=== PATIENT | female | born 1995 | race Caucasian/White ===

== ENCOUNTER 2021-07-02 00:17 | Emergency (ER) | payer BC, SELFPAY ==
[2021-07-02 00:23] VITALS: BP 147/95; PULSE 147; RESP 19; TEMP 36.7; O2SAT 98
[2021-07-02 01:32] VITALS: BP 135/88; PULSE 112; RESP 20; O2SAT 100
[2021-07-02] MEDS: SODIUM CHLORIDE 0.9% IV 1,000 ML 999 ML IV CONT (02:01)
--- NOTE | 2021-07-02 02:06 | ED.GENADULT ---
HPI - General Adult General Chief complaint: Vaginal Bleeding Stated complaint: 15 wks , bleeding COVID+ Time Seen by Provider: 07/02/21 01:33 History of Present Illness HPI narrative: Patient is a 25-year-old female who presents the emergency department with chief complaint of vaginal bleeding patient reports that she is about between 14 and 16 weeks and is followed by OB at [place] patient reports that this evening she started having cramping and started having bleeding the patient states she fell gush of blood and has had a fair amount of dark blood. Patient reports she was given RhoGAM about a week ago Related Data Home Medications Medication Instructions Recorded Confirmed aspirin 07/02/21 potassium chloride meq 07/02/21 Allergies Allergy/AdvReac Type Severity Reaction Status Date / Time amoxicillin Allergy Mild Rash Verified 07/02/21 01:33 Latex, Natural Rubber Allergy Unknown Rash Verified 07/02/21 01:33 Review of Systems Review of Systems: A 10 system review of systems was completed on the patient and is negative except for what is stated in the HPI. Nursing and ancillary documentation was reviewed. [facility] Family History Family History Father Family history of malignant neoplasm of urinary bladder Other Family history of lung cancer Hypertension Social History Social History Smoking status: Never smoker Alcohol intake: never Exam Narrative: GENERAL: Well-appearing, well-nourished, and in no acute distress. HEAD: Normocephalic, atraumatic. EYES: PERRLA and EOMI. ENT: Nares clear, no rhinorrhea or epistaxis. Mucous membranes moist. NECK: Supple. CHEST: Clear to auscultation. No respiratory distress. HEART: Regular rate and rhythm. No murmur heard. Normal peripheral pulses. ABDOMEN: Soft, nontender, nondistended, normal active bowel sounds. : There is dark blood present in the vaginal vault EXTREMITIES: Normal range of motion. No edema. SKIN: Warm, dry, no rash. NEURO: No focal deficits. Alert and oriented x3. PSYCH: Normal mood and affect. Course Vital Signs Vital signs: Vital Signs Temperature 36.7 C 07/02/21 00:23 Pulse Rate 147 H 07/02/21 00:23 Respiratory Rate 19 07/02/21 00:23 Blood Pressure 147/95 H 07/02/21 00:23 Pulse Oximetry 98 07/02/21 00:23 Temperature 36.7 C 07/02/21 00:23 Pulse Rate 112 H 07/02/21 01:32 Respiratory Rate 20 07/02/21 01:32 Blood Pressure 135/88 07/02/21 01:32 Pulse Oximetry 100 07/02/21 01:32 Medical Decision Making Vital Signs Vital Signs: Vital Signs Temperature 36.7 C 07/02/21 00:23 Pulse Rate 147 H 07/02/21 00:23 Respiratory Rate 19 07/02/21 00:23 Blood Pressure 147/95 H 07/02/21 00:23 Pulse Oximetry 98 07/02/21 00:23 Temperature 36.7 C 07/02/21 00:23 Pulse Rate 112 H 07/02/21 01:32 Respiratory Rate 20 07/02/21 01:32 Blood Pressure 135/88 07/02/21 01:32 Pulse Oximetry 100 07/02/21 01:32 Lab Data Result diagrams: 07/02/21 01:56 07/02/21 01:56 Labs: Lab Results 07/02/21 07/02/21 07/02/21 Range/Units 01:56 01:56 01:56 WBC 14.4 H (4.5-10.0) K/mm3 RBC 4.39 (4.2-5.4) M/mm3 Hgb 11.5 L (12.0-15.0) g/dL Hct 35.8 L (37.0-47.0) % MCV 81.5 (80-100) fl MCH 26.2 (26-34) pg MCHC 32.1 (32-36) g/dl RDW 14.6 H (11.5-14.5) % Plt Count 265 (150-375) k/mm3 MPV 11.1 H (7.4-10.4) fl Immature Gran % (Auto) 0.4 (0-0.5) % Neut % (Auto) 74.1 H (45.5-73.1) % Lymph % (Auto) 17.6 L (18.3-44.2) % [place] % (Auto) 6.4 (2.6-8.5) % Eos % (Auto) 1.2 (0-4.4) % Baso % (Auto) 0.3 (0.2-1.2) % Lymph # (Auto) 2.54 (0.9-3.2) K/mm3 [place] # (Auto) 0.9 H (0.1-0.6) K/mm3 Eos # (Auto) 0.2 (0-0.3) K/mm3 Baso # (Auto) 0.0 (0.0-0.1) K/m
[2021-07-02 02:08] LABS: Basophils Percent Auto 0.3 % (0.2-1.2); Eosinophils Absolute Auto 0.2 K/mm3 (0-0.3); Eosinophils Percent Auto 1.2 % (0-4.4); Hematocrit 35.8 % (37.0-47.0); Hemoglobin 11.5 g/dL (12.0-15.0); Immature Granulocyte Absolute 0.06 K/mm3 (0.00-0.031); Immature Granulocyte Percent A 0.4 % (0-0.5); Lymphocytes Absolute Auto 2.54 K/mm3 (0.9-3.2); Lymphocytes Percent Auto 17.6 % (18.3-44.2); Mean Corpuscular HGB Conc 32.1 g/dl (32-36); Mean Corpuscular Hemoglobin 26.2 pg (26-34); Mean Corpuscular Volume 81.5 fl (80-100); Mean Platelet Volume 11.1 fl (7.4-10.4); Monocytes Absolute Auto 0.9 K/mm3 (0.1-0.6); Monocytes Percent Auto 6.4 % (2.6-8.5); Neutrophils Absolute Auto 10.7 K/mm3 (1.3-6.7); Neutrophils Percent Auto 74.1 % (45.5-73.1); Platelet Count Result 265 k/mm3 (150-375); Red Blood Count 4.39 M/mm3 (4.2-5.4); Red Cell Distribution Width 14.6 % (11.5-14.5); White Blood Count 14.4 K/mm3 (4.5-10.0)
[2021-07-02 02:15] LABS: INR 0.9; Prothrombin Time 12.3 Seconds (11.1-14.7)
[2021-07-02 02:16] LABS: Partial Thromboplastin Time 25.9 SECONDS (22.3-36.8)
[2021-07-02 02:17] LABS: Alanine Aminotransferase 35 U/L (4-35); Albumin Level 3.8 g/dL (3.5-5.1); Alkaline Phosphatase 83 U/L (38-126); Anion Gap 12 mmol/L (8-16); Aspartate Amino Transferase 28 U/L (14-36); Bilirubin,Total 0.5 mg/dL (0.2-1.3); Blood Urea Nitrogen 7 mg/dL (7-17); Carbon Dioxide 23 mmol/L (22-30); Chloride 101 mmol/L (98-107); Estimated CRCL calculation 162 ml/min; Estimated Glomerular Filt Rate > 60; Glucose 109 mg/dL (65-110); Potassium 3.4 mmol/L (3.4-5.0); Sodium 136 mmol/L (137-145)
[2021-07-02 03:09] VITALS: BP 143/83; PULSE 107; RESP 15; O2SAT 98
== END 2021-07-02 03:36 | disposition home or self-care (01) ==
PROVIDERS: Emergency Provider Emergency Medicine
DX: O98.512 Other viral diseases complicating pregnancy, second trimester (principal); U07.1 COVID-19; O20.0 Threatened abortion; Z3A.15 15 weeks gestation of pregnancy; Z79.82 Long term (current) use of aspirin
CPT/HCPCS: 36415; 80053; 84702; 85025; 85461; 85610; 85730; 86880; 86902; 96360; 99284; J7030

== ENCOUNTER 2021-07-24 18:06 | Emergency (ER) | payer BC, SELFPAY ==
--- NOTE | ~2021-07-24 | XR_ITS ---
EXAMINATION: XR chest 2V EXAM DATE: 07/24/2021 18:33 INDICATION: Dizziness, tachycardia TECHNIQUE: Frontal and lateral projections of the chest obtained and reviewed. There is no prior len dy for comparison. FINDINGS: The lungs are clear. There are no pleural effusions. The cardiomediastinal silhouette is within normal limits. There is no pneumothorax suspected. The bones and soft tissues are unremarkab le. IMPRESSION: No acute cardiopulmonary findings. Reviewed, dictated and finalized at location G. [employer]
--- NOTE | 2021-07-24 18:10 | ED.GENADULT ---
HPI - General Adult General Chief complaint: Dizziness Stated complaint: Dizzy Time Seen by Provider: 07/24/21 18:20 Source: patient and RN notes reviewed Mode of arrival: ambulatory Limitations: no limitations History of Present Illness HPI narrative: 25-year-old female presented for complaint of lightheadedness and head pressure. She states she has had pressure in her head for approximately 1 to 2 weeks intermittently. She endorses dizziness/lightheadedness started today. She states she felt shaky while at rest. Also endorses diarrhea today. Hx anxiety, states this feels different. Denies room spinning or off balance sensation. She denies nausea, vomiting, decreased appetite, abdominal pain, urinary complaints, chest pain, palpitations, shortness of breath, wheezing, fever or chills. She endorses on 07/05/2021 a miscarriage at 16 weeks gestation, she continues to have spotting dark in color. She has a follow-up with her [facility] [employer] in 2 days. She is not vaccinated for COVID. She endorses COVID positive the beginning of June. She has had no complications for this. She denies significant medical history. No medications. Denies drugs/caffeine/smoking. She does not have a PCP. Related Data Allergies Allergy/AdvReac Type Severity Reaction Status Date / Time amoxicillin Allergy Mild Rash Verified 07/02/21 01:33 Latex, Natural Rubber Allergy Unknown Rash Verified 07/02/21 01:33 Review of Systems Review of Systems: CONSTITUTIONAL: Denies body aches, fever, chills, or sweats. EYES: Denies visual changes, redness, or discharge. ENT: Denies rhinorrhea, congestion, sore throat, or otalgia. CARDIOVASCULAR: Denies chest pain, palpitations, or edema. RESPIRATORY: Denies cough or dyspnea. GASTROINTESTINAL: Denies abdominal pain, nausea, vomiting, or diarrhea. GENITOURINARY: Denies dysuria or hematuria. SKIN: Denies rash, itching, or wounds. MUSCULOSKELETAL: Denies back pain, joint pain, or myalgia. NEUROLOGIC: Endorses lightheadedness; Denies headache, numbness, tingling, or weakness. PSYCH: Denies depression or anxiety. All systems reviewed & are unremarkable except as noted in HPI and below [facility] Family History Family History Father Family history of malignant neoplasm of urinary bladder Other Family history of lung cancer Hypertension Social History Social History Smoking status: Never smoker Alcohol intake: never Comments At time of signature, I have reviewed and agree with nursing past medical, surgical, social and family history unless otherwise noted. Please see nursing chart for further information. There is no relevant family history pertinent to the presenting complaint Exam Narrative: GENERAL: Well-appearing, well-nourished, and in no acute distress. HEAD: Normocephalic, atraumatic. EYES: EOMI. No redness or drainage. Conjunctivae normal. ENT: Mucous membranes pink and moist. No rhinorrhea. TMs normal bilaterally. Throat normal. Uvula midline. NECK: Normal AROM. Supple. No lymphadenopathy. CHEST: No respiratory distress. Clear to auscultation. HEART: Tachycardic with regular rhythm. No murmur appreciated. Normal peripheral pulses. ABDOMEN: Soft, nontender, nondistended, normal active bowel sounds, limited due to body habitus MUSCULOSKELETAL: No bony tenderness. EXTREMITIES: Normal range of motion. No edema. SKIN: Warm, dry, no rash. Capillary refill normal. Normal skin turgor. NEURO: No focal deficits. Alert and oriented x3. Gait steady. PSYCH: Normal affect. Course Course Emergency Course: Reviewed CXR, EKG and urine with pt. She states she has f/u with her OBgyn since miscarriage, but has not had any labwork since the hospital visit. We discussed further evaluation can be performed at ER. She requests [facility]. Pt is stable, nontoxic, aware of diagnosis, and understands and a
[2021-07-24 18:13] VITALS: BP 154/90; PULSE 145; RESP 18; TEMP 36.9; O2SAT 100
--- NOTE | 2021-07-24 18:26 | ECG_ITS ---
Measurements Intervals [place] Rate: 132 P: 40 MN: 143 QRS: 24 QRSD: 86 T: -8 QT: 312 QTc: 463 Interpretive Statements SINUS TACHYCARDIA MINIMAL Q WAVES- INF/LAT LEADS NONSPECIFIC ST & T-WAVE ABNORMALITY- ANT/INF LEADS ABNORMAL ECG Electronically Signed On 07-25-2021 7:45:58 SHIP'S ENGINEER by Noe Cabrera D.O.
== END 2021-07-24 19:14 | disposition short-term general hospital (02) ==
PROVIDERS: Emergency Provider Nurse Practitioner Family
DX: R42 Dizziness and giddiness (principal); R00.0 Tachycardia, unspecified
CPT/HCPCS: 71046; 81003; 87086; 93005; 99213; G0463

== ENCOUNTER 2021-08-25 13:55 | Outpatient (CLI) | payer BC, SELFPAY ==
--- NOTE | 2021-08-25 14:23 | ECG_ITS ---
Measurements Intervals [place] Rate: 100 P: 26 NV: 149 QRS: 30 QRSD: 87 T: -7 QT: 340 QTc: 440 Interpretive Statements SINUS TACHYCARDIA NONSPECIFIC T-WAVE ABNORMALITY Borderline ECG COMPARED TO ECG 07/24/2021 18:39:23 Heart rate has decreased Electronically Signed On 08-25-2021 16:19:03 EXPEDITER CLERK by Jesse Watson M.D.
== END 2021-08-25 13:56 | disposition home or self-care (01) ==
PROVIDERS: PCP Family Medicine; Visit Provider Nurse Practitioner Family
DX: R00.2 Palpitations (principal); R94.31 Abnormal electrocardiogram [ECG] [EKG]
CPT/HCPCS: 93005

== ENCOUNTER 2021-09-14 13:21 | Outpatient (CLI) | payer BC, SELFPAY ==
--- NOTE | 2021-09-20 11:23 | WPDHOLTEREM ---
Holter/Event Monitor Holter/Event Monitor Date of procedure: 09/14/21 Holter/Event Procedure: 48 Hr Holter Monitor Indications: Tachycardia Conclusion: 1. 48 hour holter monitor on 09/14/21. 2. Underlying rhythm is sinus rhythm. HR range 46-148 bpm; average HR 79 bpm. 3. There are 7 premature supraventricular complexes and 2 supraventricular couplets. No supraventricular tachycardia. 4. There are 9 premature ventricular complexes. No ventricular tachycardia. 5. No sinoatrial or atrioventricular blocks. No significant pauses greater than 2 seconds. 6. No symptoms available for correlation.
== END 2021-09-14 13:22 | disposition home or self-care (01) ==
LOC: ANHCARD 13:23
PROVIDERS: PCP Family Medicine; Visit Provider Nurse Practitioner Family
DX: R00.0 Tachycardia, unspecified (principal)
CPT/HCPCS: 93225; 93226

== ENCOUNTER 2022-01-01 16:58 | Emergency (ER) | payer BC, SELFPAY ==
[2022-01-01 17:15] VITALS: BP 136/88; PULSE 126; RESP 16; TEMP 36.9
--- NOTE | 2022-01-01 17:25 | ED.GENADULT ---
HPI - General Adult General Chief complaint: Ear Stated complaint: sinus/ear pressure Time Seen by Provider: 01/01/22 17:25 Source: patient Mode of arrival: ambulatory Limitations: no limitations History of Present Illness HPI narrative: 26-year-old female patient presents to the [facility] with complaints of bilateral ear pain for several weeks now. Patient states she has had some draining to the back of her throat and stuffy nose at times. Patient states she has had some itchy eyes as well but denies any sneezing. Denies fevers, body aches or chills. Patient states she has been trying to take Claritin but states it has not really helped. Related Data Allergies Allergy/AdvReac Type Severity Reaction Status Date / Time amoxicillin Allergy Mild Rash Verified 01/01/22 17:13 Latex, Natural Rubber Allergy Unknown Rash Verified 01/01/22 17:13 Review of Systems Review of Systems: CONSTITUTIONAL: Denies fever, chills, or sweats. EYES: Denies visual changes, redness, or discharge. ENT: Denies rhinorrhea, congestion, sore throat, positive bilateral otalgia. CARDIOVASCULAR: Denies chest pain, palpitations, or edema. RESPIRATORY: Denies cough or dyspnea. GASTROINTESTINAL: Denies abdominal pain, nausea, vomiting, or diarrhea. GENITOURINARY: Denies dysuria or hematuria. SKIN: Denies rash or itching. MUSCULOSKELETAL: Denies back pain, joint pain, or myalgia. NEUROLOGIC: Denies headache, numbness, or weakness. PSYCHIATRIC: Denies anxiety or depression. [facility] Past Medical History Medical History Abnormal bruising Blood in stool COVID-19 Dietary counseling and surveillance (10/16/16) Low hemoglobin Morbid (severe) obesity due to excess calories Family History Family History Father Family history of malignant neoplasm of urinary bladder Mother No problems noted. Sibling No problems noted. 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 Gender identity (if verbalized by the patient): Female Comments At the time of my signature I agree with nursing past medical history, surgical, social, and family history. There is no relevant family history pertinent to the presenting complaint. Exam Narrative: GENERAL: Well-appearing, well-nourished, and in no acute distress. HEAD: Normocephalic, atraumatic. EYES: PERRLA and EOMI. ENT: Nares clear, no rhinorrhea or epistaxis. Mucous membranes moist. Bilateral TMs do appear cloudy and are suggestive of fluid to bilateral TMs. No erythema, no foreign bodies noted to the canal. NECK: Supple. No lymphadenopathy CHEST: Clear to auscultation. No respiratory distress. HEART: Regular rate and rhythm. No murmur heard. Normal peripheral pulses. ABDOMEN: Soft, nontender, nondistended, normal active bowel sounds. EXTREMITIES: Normal range of motion. No edema. SKIN: Warm, dry, no rash. NEURO: No focal deficits. Alert and oriented x3. Course Course Level of Care: Express Care Visit Vital Signs Vital signs: Vital Signs Temperature 36.9 C 01/01/22 17:15 Pulse Rate 126 H 01/01/22 17:15 Respiratory Rate 16 01/01/22 17:15 Blood Pressure 136/88 01/01/22 17:15 Temperature 36.9 C 01/01/22 17:15 Pulse Rate 126 H 01/01/22 17:15 Respiratory Rate 16 01/01/22 17:15 Blood Pressure 136/88 01/01/22 17:15 Vital signs reviewed The patient has been informed that they may have pre-hypertension or Hypertension based on a BP reading in the department. I recommend that the patient call the primary care provider listed on their discharge instructions or a physici
== END 2022-01-01 17:39 | disposition home or self-care (01) ==
PROVIDERS: Emergency Provider Nurse Practitioner Family
DX: H65.03 Acute serous otitis media, bilateral (principal); H93.8X3 Other specified disorders of ear, bilateral; E66.01 Morbid (severe) obesity due to excess calories; Z68.41 Body mass index [BMI] 40.0-44.9, adult; Z86.16 Personal history of COVID-19
CPT/HCPCS: 99213; G0463

== ENCOUNTER 2022-01-20 18:07 | Emergency (ER) | payer BC, SELFPAY ==
[2022-01-20 18:14] VITALS: BP 129/84; PULSE 113; RESP 16; TEMP 37.5; O2SAT 100
--- NOTE | 2022-01-20 18:14 | ED.ABDPAIN ---
HPI - Abdominal Pain General Chief Complaint: Abdominal Pain Stated Complaint: acid reflux Time Seen by Provider: 01/20/22 18:14 Source: patient Mode of arrival: ambulatory Limitations: no limitations History of Present Illness HPI narrative: Ms. Green is a 26-year-old female patient presenting to the clinic today with complaints of acid reflux x2 to 3 days. She reports she has a burning sensation in her throat as well as epigastric pain. States that the pain is currently a 2 out of 10. States that its feels like a pressure in the mid abdomen. She reports nausea with this however she does not have any vomiting or diarrhea. She denies any bright red blood or tarry stools. She is passing gas. She denies feeling bloated. Last bowel movement was today and normal for her. Denies any urinary symptoms. Related Data Allergies Allergy/AdvReac Type Severity Reaction Status Date / Time amoxicillin Allergy Mild Rash Verified 01/01/22 17:13 Latex, Natural Rubber Allergy Unknown Rash Verified 01/01/22 17:13 Review of Systems Review of Systems: Pertinent positives per HPI. Patient denies any fever, chills, rash, headache, visual changes, dizziness, cough, runny nose, sore throat, shortness of breath, chest pain, palpitations, nausea, vomiting, diarrhea, constipation, abdominal pain, or any urinary issues. [facility] Past Medical History Medical History Abnormal bruising Blood in stool COVID-19 Dietary counseling and surveillance (10/16/16) Low hemoglobin Morbid (severe) obesity due to excess calories Family History Family History Father Family history of malignant neoplasm of urinary bladder Mother No problems noted. Sibling No problems noted. 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 Gender identity (if verbalized by the patient): Female Comments At the time of my signature, I reviewed and agree with the nursing past medical, surgical, social, and family history. There is no relevant family history pertinent to the patient complaint. Exam Narrative: General: Well-developed, morbidly obese, in no apparent distress. Head: Normocephalic, atraumatic. Cardio: Regular rate and rhythm, s1 and s2 normal, no murmur appreciated. Resp: Clear to auscultation bilaterally, no rhonchi, rales, wheezing or rubs. Abdomen: Soft, pliable, bowel sounds present in all quadrants, mild tender to palpation over the mid epigastrium, no organomegly, no CVAT tenderness. Course Course Emergency Course: Portions of this record may have been created with voice recognition software. Level of Care: Express Care Visit Vital Signs Vital signs: Vital signs reviewed MDM - Abdominal Pain MDM Narrative Medical decision making narrative: At the time of visit patient is resting comfortably on the exam table. She has very mild pain to palpation over the epigastrium. I suspect she has GERD with nausea. We will give her dose of 30 mL of Maalox and 15 mL of viscous lidocaine to help alleviate pain today. Prescription for Protonix and Zofran was sent to her pharmacy. She is to follow-up with her PCP for further work-up. Supportive measures were discussed with the patient she voiced understanding of discharge instructions and agrees to treatment plan. Differential Diagnosis Differential diagnosis: Likely abdominal pain, constipation, small bowel obstruction and other (Peptic ulcer disease, GERD) Discharge Plan Discharge Clinical Impression: Epigastric abdominal pain, Nausea Patient Disposition: Ho
[2022-01-20] MEDS: MAG HYDROX/AL HYDROX/SIMETH 30 ML UDC PO (18:29)
[2022-01-20] MEDS: LIDOCAINE HCL 2% VISC SOLN 15 ML UDC PO (18:29)
== END 2022-01-20 18:39 | disposition home or self-care (01) ==
PROVIDERS: Emergency Provider Nurse Practitioner Family; PCP Family Medicine
DX: R10.13 Epigastric pain (principal); R11.0 Nausea; E66.01 Morbid (severe) obesity due to excess calories; Z68.42 Body mass index [BMI] 45.0-49.9, adult; Z86.16 Personal history of COVID-19
CPT/HCPCS: 99213; A9270; G0463

== ENCOUNTER 2023-07-27 08:23 | Emergency (ER) | payer BC, SELFPAY ==
--- NOTE | 2023-07-27 08:25 | ED.URI ---
HPI - URI/Sore Throat General Chief Complaint: Upper Respiratory Infection Stated Complaint: Chest Congestion;Sore Throat Time Seen by Provider: 07/27/23 08:24 Source: patient Mode of arrival: ambulatory Limitations: no limitations History of Present Illness HPI Narrative: Patient is a 27-year-old female presents with cough and congestion for 1.5 weeks. States sore throat started today. Has been taking Tylenol ibuprofen. Denies any fever, chills, nausea, vomiting, diarrhea. Related Data Allergies Allergy/AdvReac Type Severity Reaction Status Date / Time amoxicillin Allergy Mild Rash Verified 01/01/22 17:13 Latex, Natural Rubber Allergy Unknown Rash Verified 01/01/22 17:13 Review of Systems Review of Systems: All systems reviewed & are unremarkable except as noted in HPI and below Constitutional: Constitutional: Denies body ache(s), Denies chills, Denies fatigue, Denies fever(s), Denies headache(s), Denies malaise and Denies weakness Eyes: Eyes: Denies blurry vision, Denies itchy eyes and Denies loss of vision ENT: Denies otalgia, Denies headache(s), Reports nasal congestion, Denies sinus pain and Reports sore throat Cardiovascular: Cardiovascular: Denies chest pain, Denies irregular heart rhythm and Denies dyspnea Respiratory: Respiratory: Reports cough and Denies dyspnea Gastrointestinal: Gastrointestinal: Denies abdominal pain, Denies diarrhea, Denies nausea and Denies vomiting Musculoskeletal: Musculoskeletal: Denies back pain, Denies myalgias and Denies arthralgias Integumentary/Breasts: Skin/Breast: Denies pruritus and Denies rash Neurologic: Denies headache(s), Denies loss of vision and Denies weakness Psychiatric: Psychiatric: Reports no additional psychiatric complaints Endocrine: Endocrine: Denies fatigue Allergic/Immunologic: Allergic/Immunologic: Denies itchy eyes PMF[facility] Past Medical History Medical History Abnormal bruising Blood in stool COVID-19 Dietary counseling and surveillance (10/16/16) Low hemoglobin Morbid (severe) obesity due to excess calories Family History Family History Father Family history of malignant neoplasm of urinary bladder Mother No problems noted. Sibling No problems noted. 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 Gender identity (if verbalized by the patient): Female Comments At time of signature, agree with nursing past medical, surgical, social and family history. There is no relevant family history pertinent to the presenting complaint. Exam Const: General: cooperative, healthy appearing, comfortable, no acute distress and well nourished Nutritional Appearance: well nourished Orientation/consciousness: patient oriented x3 Limitations: no limitations HENMT: Head: normal to inspection, normocephalic and atraumatic Ears: hearing grossly normal bilaterally, external ears normal, TM's normal bilaterally, EAC's normal and no periauricular adenopathy Face/Nose/Sinus: Normal external nose present, Abnormal mucous membranes and turbinates present erythematous bilateral and diffuse, normal facial exam, sinuses nontender and face symmetric Face and sinus: normal facial exam, sinuses nontender and face symmetric Mouth: Yes Normal oral and palatal mucosa present, Yes lip normal, Yes tongue normal, Yes Normal salivary glands and ducts present, Yes oropharynx normal and Yes moist mucous membranes Teeth and gingiva: dentition normal Throat: uvula midline, posterior oropharyn
[2023-07-27 08:51] VITALS: BP 127/94; PULSE 99; RESP 16; TEMP 36.6; O2SAT 100
== END 2023-07-27 09:20 | disposition home or self-care (01) ==
PROVIDERS: Emergency Provider Nurse Practitioner Family; PCP Nurse Practitioner Family
DX: J02.0 Streptococcal pharyngitis (principal); Z86.16 Personal history of COVID-19
CPT/HCPCS: 87880; 99213; G0463

== ENCOUNTER 2023-12-18 19:34 | Emergency (ER) | payer BC, SELFPAY ==
--- NOTE | 2023-12-18 19:40 | ED.SKABFB ---
HPI - Skin/Abscess/Foreign Bdy General Chief complaint: Skin/Abscess/Foreign Body Stated complaint: Right Ankle Spider Bite Time Seen by Provider: 12/18/23 19:40 Source: patient and RN notes reviewed Mode of arrival: ambulatory Limitations: no limitations History of Present Illness HPI narrative: 28-year-old female who is 10 weeks presents with concern for red, warm area on her right lower leg. Reports she was bit by something about 2 weeks ago and had a red spot since then, it has become bigger, tender, firm. She denies any drainage from the area. MD complaint: other (redness) Related Data Allergies Allergy/AdvReac Type Severity Reaction Status Date / Time amoxicillin Allergy Mild Rash Verified 12/18/23 19:36 Latex, Natural Rubber Allergy Unknown Rash Verified 12/18/23 19:36 Review of Systems Review of Systems: CONSTITUTIONAL: Denies malaise, chills, sweats, or fever. EYES: Denies redness, or discharge. ENT: Denies rhinorrhea, congestion, swollen lips, swollen tongue CARDIOVASCULAR: Denies chest pain, palpitations, or edema. RESPIRATORY: Denies cough or dyspnea. GASTROINTESTINAL: Denies abdominal pain, nausea, vomiting SKIN: Reports red tender area on her right lower leg MUSCULOSKELETAL: Denies joint pain or myalgia. NEUROLOGIC: Denies headache. All systems reviewed & are unremarkable except as noted in HPI and below PMFSH Past Medical History Medical History Abnormal bruising Blood in stool COVID-19 Dietary counseling and surveillance (10/16/16) Low hemoglobin Morbid (severe) obesity due to excess calories Family History Family History Father Family history of malignant neoplasm of urinary bladder Mother No problems noted. Sibling No problems noted. 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 Gender identity (if verbalized by the patient): Female Comments At time of signature, agree with nursing past medical, surgical, social and family history. There is no relevant family history pertinent to the presenting complaint Exam Narrative: GENERAL: Well-appearing, well-nourished, and in no acute distress. HEAD: Normocephalic, atraumatic. EYES: PERRLA, conjunctivae clear, and EOMI. ENT: Mucous membranes moist. Oropharynx without edema, erythema or lesions. NECK: Supple. No lymphadenopathy CHEST: Clear to auscultation. No respiratory distress. HEART: Regular rate and rhythm. SKIN: Warm, dry. Approximately 4 cm in diameter area of erythema, induration, warmth, tenderness with no fluctuation noted to the right anterior lower leg just above the ankle NEURO: Alert and oriented x3. PSYCH: Normal mood and affect Course Course Emergency Course: Patient is aware of diagnosis, understands and agrees to treatment plan. Anticipatory guidance given. Patient agrees to follow-up as directed and is aware of reasons to seek care at the emergency department. Portions of this record may have been created with voice recognition software Level of Care: Express Care Visit Vital Signs Vital signs: Reviewed. MDM - Skin/Abscess/Foreign Bdy MDM Narrative Medical decision making narrative: I evaluated this in the express care. History is obtained from patient who is an independent historian and physical exam was performed.? Available medical records were reviewed. ? Exam findings and relevant testing show no acute concerns or changes; patient is non-toxic appearing and is in no distress. No risk factors o
[2023-12-18 19:41] VITALS: BP 132/71; PULSE 98; RESP 16; TEMP 37.3; O2SAT 99
== END 2023-12-18 19:55 | disposition home or self-care (01) ==
PROVIDERS: Emergency Provider Nurse Practitioner; PCP Nurse Practitioner Family
DX: L03.115 Cellulitis of right lower limb (principal); E66.01 Morbid (severe) obesity due to excess calories; Z68.41 Body mass index [BMI] 40.0-44.9, adult; Z86.16 Personal history of COVID-19
CPT/HCPCS: 99213; G0463

== ENCOUNTER 2024-03-12 17:09 | Emergency (ER) | payer OTHER, SELFPAY ==
[2024-03-12 17:22] VITALS: BP 134/75; PULSE 89; RESP 16; TEMP 36.7; O2SAT 100
--- NOTE | 2024-03-12 17:24 | ED.EYEPROB ---
HPI - Eye Problem General Chief complaint: Eye Problems Stated complaint: left eye red Time Seen by Provider: 03/12/24 17:37 Source: patient and RN notes reviewed Mode of arrival: ambulatory Limitations: no limitations History of Present Illness HPI Narrative: 28-year-old female presents with concern for redness, drainage in her left eye. She reports it was crusted shut when she woke up this morning. She reports she was exposed to pinkeye yesterday chief complaint: eye redness Related Data Allergies Allergy/AdvReac Type Severity Reaction Status Date / Time amoxicillin Allergy Mild Rash Verified 03/12/24 17:15 Latex, Natural Rubber Allergy Mild Rash Verified 03/12/24 17:15 Review of Systems Review of Systems: CONSTITUTIONAL: Denies malaise, chills, sweats, or fever. EYES: Denies visual changes. Reports left eye redness, irritation, discharge. ENT: Denies rhinorrhea, congestion, sinus pain, otalgia or sore throat. SKIN: Denies rash or itching. NEUROLOGIC: Denies numbness, weakness, or headache. PSYCHIATRIC: Denies anxiety or depression. All systems reviewed & are unremarkable except as noted in HPI and below PMFSH Past Medical History Medical History Abnormal bruising Blood in stool COVID-19 Dietary counseling and surveillance (10/16/16) Low hemoglobin Morbid (severe) obesity due to excess calories Family History Family History Father Family history of malignant neoplasm of urinary bladder Mother No problems noted. Sibling No problems noted. 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 Gender identity (if verbalized by the patient): Female Comments At time of signature, agree with nursing past medical, surgical, social and family history. There is no relevant family history pertinent to the presenting complaint Exam Narrative: GENERAL: Well-appearing, well-nourished, and in no acute distress. HEAD: Normocephalic, atraumatic. EYES: PERRLA, sclera clear, and EOMI. No nystagmus. Left sclera and conjunctivae injected with green drainage noted. Upper and lower eyelid unremarkable, no periorbital edema noted ENT: Nares clear, turbinates pink, no rhinorrhea or epistaxis. Mucous membranes moist. TM pearly prado with sharp light reflex bilaterally; no tragal tenderness. NECK: Supple. CHEST: No respiratory distress. Speaks in full sentences. HEART: Regular rate and rhythm. SKIN: Warm, dry, no visible rash. NEURO: Alert and oriented x3. PSYCH: Normal mood and affect Course Course Emergency Course: Patient is aware of diagnosis, understands and agrees to treatment plan. Anticipatory guidance given. Patient agrees to follow-up as directed and is aware of reasons to seek care at the emergency department. Portions of this record may have been created with voice recognition software Level of Care: Express Care Visit Vital Signs Vital signs: Reviewed. MDM - Eye Problem MDM Narrative Medical decision making narrative: Consideration of the following conditions may be warranted for the presenting problem, they are not final diagnoses: Bacterial conjunctivitis, allergic conjunctivitis, viral conjunctivitis, foreign body, blepharitis, chalazion, hordeolum, corneal abrasion, preseptal cellulitis, orbital cellulitis. No evidence of proptosis, ophthalmoplegia, vision loss, pain with eye movement. Exam findings show no acute concerns or changes; patient is non-toxic appearing and is in no distress. Patient is ap
== END 2024-03-12 17:54 | disposition home or self-care (01) ==
PROVIDERS: Emergency Provider Nurse Practitioner
DX: H10.9 Unspecified conjunctivitis (principal); E66.01 Morbid (severe) obesity due to excess calories; Z68.42 Body mass index [BMI] 45.0-49.9, adult; Z86.16 Personal history of COVID-19
CPT/HCPCS: 99213; G0463